=== PATIENT | female | born 1950 | race Two or more races ===

== ENCOUNTER → 2018-03-19 11:27 | Outpatient (CLI) | payer OTHER ==
[~2018-03-19 11:27] MED LIST: AMOX1TAB12 PO; AVALIDE 300-121 EACH PO; CARDIZEM30 MG PO; FLONASE16 GM NASAL; LISINOPRIL5 MG PO; TUSSI PRES-B L120 M1 PO
== END | disposition home or self-care (01) ==
LOC: LAB 11:27
DX: M99.63 Osseous and subluxation stenosis of intervertebral foramina of lumbar region (principal); D68.8 Other specified coagulation defects

== ENCOUNTER 2018-04-02 06:56 | Day surgery (SDC) | payer OTHER | END 2018-04-02 15:10 | disposition home or self-care (01) | LOC: CIR.AMB 06:56 | DX: M99.63 Osseous and subluxation stenosis of intervertebral foramina of lumbar region (principal) ==

== ENCOUNTER 2018-05-21 06:22 | Outpatient (CLI) | payer OTHER | END 2018-05-21 06:49 | disposition home or self-care (01) | LOC: LAB 06:22 | DX: R10.13 Epigastric pain (principal) ==

== ENCOUNTER 2018-05-21 07:48 | Outpatient (CLI) | payer OTHER | END 2018-05-21 08:56 | disposition home or self-care (01) | LOC: SONOGRAMA 07:48 | DX: R10.13 Epigastric pain (principal) ==

== ENCOUNTER 2019-03-20 13:55 | Emergency (ER) | payer OTHER ==
[~2019-03-20] VITALS: Ht 165.1 cm; Wt 96.6 kg
[2019-03-20] MEDS ORDERED: ZOCOR40 MG (14:54)
[2019-03-20] MEDS ORDERED: DICLOFENAC SODI75 MG PO (16:31)
== END 2019-03-20 16:41 | disposition home or self-care (01) ==
LOC: ER 13:55
DX: M25.512 Pain in left shoulder (principal)

== ENCOUNTER → 2023-02-03 | Outpatient (CLI) | payer OTHER ==
[~2023-02-03] MED LIST changes: +DICLOFENAC SODI75 MG PO; +ZOCOR40 MG
== END | disposition home or self-care (01) ==
LOC: NUCLEAR 07:00
PROVIDERS: ATTEND Internal Medicine
DX: I11.9 Hypertensive heart disease without heart failure (principal); R07.9 Chest pain, unspecified; E11.9 Type 2 diabetes mellitus without complications; E78.2 Mixed hyperlipidemia
CPT/HCPCS: 78452; 93017; A9500; J0153

== ENCOUNTER 2024-02-12 07:40 | Outpatient (CLI) | payer OTHER | END 2024-02-12 07:47 | disposition home or self-care (01) | LOC: RAD 07:40 | PROVIDERS: ATTEND Internal Medicine | DX: M25.561 Pain in right knee (principal); M25.562 Pain in left knee | CPT/HCPCS: 73721 ==

== ENCOUNTER 2024-08-29 07:10 | Outpatient (CLI) | payer OTHER | END 2024-08-29 07:12 | disposition home or self-care (01) | LOC: RAD 07:10 | PROVIDERS: ATTEND Internal Medicine | DX: M25.552 Pain in left hip (principal); M25.551 Pain in right hip ==

== ENCOUNTER 2024-12-19 08:00 | Outpatient (CLI) | payer OTHER | END 2024-12-19 08:03 | disposition home or self-care (01) | LOC: NUCLEAR 08:00 | PROVIDERS: ATTEND Specialist | DX: I87.2 Venous insufficiency (chronic) (peripheral) (principal) ==

== ENCOUNTER → 2024-12-20 07:38 | Outpatient (CLI) | payer OTHER | END | disposition home or self-care (01) | LOC: NUCLEAR 07:38 | PROVIDERS: ATTEND Specialist | DX: I73.9 Peripheral vascular disease, unspecified (principal) ==